=== PATIENT | male | born 2000 | race African-American/Black ===

== ENCOUNTER 2024-12-01 16:44 | Emergency (ER) | payer SELFPAY ==
[~2024-12-01] VITALS: Ht 193 cm; Wt 86.0 kg
[~2024-12-01 16:44] MED LIST: ALBU18; Q-VAR
--- NOTE | 2024-12-01 17:21 | ED.PDOC ---
History of Present Illness HPI Comments 24 year old male presents to the ED with a chief complaint of head pain onset 1 week. Patient states he has been experiencing head pain, neck pain for the past week. Patient was seen at [facility] yesterday, was given Toradol and [place], with no relief of symptoms. Denies any PMHx as well as fall, injury, trauma, LOC, dizziness, blurry vision, nausea, vomiting, diarrhea. No other symptoms or modifying factors present at this time. Chief Complaint: Neck Pain Time Seen by MD: 17:05 Reviewed Notes: Nurses Notes, Medications, Allergies Allergies: Coded Allergies: NO KNOWN ALLERGIES (Unverified , 05/13/10) Home Meds Reported Medications Albuterol Sulfate (Ventolin Hfa) Aer, PRN 05/13/10 [Q-Blane] No Conflict Check 05/13/10 Information Source: Patient Mode of Arrival: Ambulatory Severity: Moderate Timing: Weeks Duration: Since onset Prehospital treatment: None Past Medical History PAST MEDICAL HISTORY: Denies Surgical History: Denies all surgeries Family History Family History: Reviewed,noncontributory to illness, No family hx of Cancer, No family hx of DM, No family hx of Heart aliya, No family hx of HTN, No family hx ofKidney aliya, No family hx of Liver aliya, No family hx of Lung aliya, No family hx of Stroke Social History Smoker: Non-Smoker Alcohol: Denies ETOH Use Drugs: Denies Drug Use Lives In: Home Constitutional: denies: chills, diaphoresis, fatigue, fever, malaise, sweats, weakness, others EENTM: denies: blurred vision, double vision, ear bleeding, ear discharge, ear drainage, ear pain, ear ringing, eye pain, eye redness, hearing loss, mouth pain, mouth swelling, nasal discharge, nose bleeding, nose congestion, nose pain, photophobia, tearing, throat pain, throat swelling, voice changes, others Respiratory: denies: cough, hemoptysis, orthopnea, SOB at rest, shortness of breath, SOB with excertion, stridor, wheezing, others Cardiovascular: denies: chest pain, dizzy spells, diaphoresis, Dyspnea on exertion, edema, irregular heart beat, left arm pain, lightheadedness, palpitations, PND, syncope, others Gastrointestinal: denies: abdomen distended, abdominal pain, blood streaked bowels, constipated, diarrhea, dysphagia, difficulty swallowing, hematemesis, melena, nausea, poor appetite, poor fluid intake, rectal bleeding, rectal pain, vomiting, others Genitourinary: denies: burning, dysuria, flank pain, frequency, hematuria, incontinence, penile discharge, penile sore, pain, testicle pain, testicle swelling, urgency, others Neurological: reports: headache; denies: dizziness, fainting, left sided numbness, left sided weakness, numbness, paresthesia, pre-existing deficit, right sided numbness, right sided weakness, seizure, speech problems, tingling, tremors, weakness, others Musculoskeletal: reports: neck pain; denies: back pain, gout, joint pain, joint swelling, muscle pain, muscle stiffness, others Integumetry: denies: bruises, change in color, change in hair/nails, dryness, laceration, lesions, lumps, rash, wounds, others Allergic/Immunocompromised: denies: Difficulty Healing, Frequent Infections, Hives, Itching, others Hematologic/Lymphatic: denies: anemia, blood clots, easy bleeding, easy bruising, swollen glands, others Endocrine: denies: excessive hunger, excessive sweating, excessive thirst, excessive urination, flushing, intolerance to cold, intolerance to heat, unexplained weight gain, unexplained weight loss, others Psychiatric: denies: anxiety, bipolar disorder, depression, hopeless, panic disorder, schizophrenia, sleepless, suicidal, others All Other Systems: Reviewed and Negative Physical Exam General Appearance: Moderate Distress (Moderate distress at time of evaluation due to head and neck pain.), Normal HEENT: Normal ENT Inspection, Pharynx Normal, TMs Normal Neck: Other ( Diffuse tenderness to palpation bilaterally a posterior cervical spine. No step-offs noted. No signs of trauma. Mild reduced range of motion.) Respiratory: Chest Non-Tender, Lungs Clear, No Accessory Muscle Use, No Respiratory Distress, Normal Breath Sounds Cardiovascular: No Edema, No JVD, No Murmur, No Gallop, Normal Peripheral Pulses, Regular Rate/Rhythm Breast Exam: Deferred Gastrointestinal: No Organomegaly, Non Tender, No Pulsatile Mass, Normal Bowel Sounds, Soft Genitalia: Deferred Pelvic: Deferred Rectal: Deferred Extremities: No calf tenderness, Normal capillary refill, Normal inspection, Normal range of motion, Non-tender, No pedal edema Musculoskeletal : Apperance: Normal Neurologic: Alert, No Motor Deficits, Normal Affect, Normal Mood, No Sensory Deficits Cerebellar Function: Normal Reflexes: Normal Skin: Dry, Normal Color, Warm Lymphatic: No Adenopathy Was a procedure done? Was a procedure done?: No Differential Dx Considerations may include: Cervical radiculopathy, cervical vertebrae fracture, cervical muscle strain, se psis, electrolyte abnormality X-Ray, Labs, Meds, VS Vital Signs Date Time Temp Pulse Resp B/P (MAP) Pulse Ox O2 Delivery O2 Flow Rate FiO2 12/01/24 20:27 99 17 100 Room Air* 0 21 12/01/24 20:26 99 19 141/89 12/01/24 20:22 98.9 99 19 148/81 (103) 100 98.9 12/01/24 17:06 97.8 132 16 146/88 (107) 100 97.8 Lab Test 12/01/24 17:33 Range/Units White Blood Count 4.8 4.4-10.8 10^3/uL Red Blood Count 5.06 4.5-5.90 10^6/uL Hemoglobin 15.6 13.5-17.5 g/dL Hematocrit 46.1 41.0-53.0 % Mean Corpuscular Volume 91.1 80.0-100.0 fL Mean Corpuscular Hemoglobin 30.8 28.0-32.0 pg Mean Corpuscular Hemoglobin Concent 33.8 32.0-36.0 g/dL Red Cell Distribution Width 13.6 11.8-14.3 % Platelet Count 161 140-450 10^3/uL Mean Platelet Volume 9.2 6.9-10.8 fL Neutrophils (%) (Auto) 59.1 37.0-80.0 % Lymphocytes (%) (Auto) 32.4 10.0-50.0 % Monocytes (%) (Auto) 6.6 0.0-12.0 % Eosinophils (%) (Auto) 1.6 0.0-7.0 % Basophils (%) (Auto) 0.3 0.0-2.0 % Neutrophils # (Auto) 2.8 1.6-8.6 10 ^3/uL Lymphocytes # (Auto) 1.6 0.4-5.4 10 ^3/uL Monocytes # (Auto) 0.3 0-1.3 10 ^3/uL Eosinophils # (Auto) 0.1 0-0.8 10 ^3/uL Basophils # (Auto) 0 0-0.2 10 ^3/uL Nucleated Red Blood Cells 0.2 % Sodium Level 141 136-145 mmol/L Potassium Level 3.7 3.5-5.1 mmol/L Chloride Level 105 98-107 mmol/L Carbon Dioxide Level 26 20-31 mmol/L Anion Gap 10 5-15 Blood Urea Nitrogen 8 L 9-23 mg/dL Creatinine 1.00 0.700-1.30 mg/dL Glomerular Filtration Rate Calc 109 >90 mL/min BUN/Creatinine Ratio 8.0 L 10.0-20.0 Serum Glucose 99 74-106 mg/dL Calcium Level 10.9 H 8.7-10.4 mg/dL Current Medications Medications (Trade) Dose Ordered Sig/Nayana Route Start Time Stop Time Status Last Admin Hydromorphone HCl (Dilaudid Injection) 0.5 mg ONCE ONCE IM 12/01/24 17:15 12/01/24 17:16 DC 12/01/24 20:26 X-Ray, Labs, Meds, VS Comment All studies performed the ED were evaluated by me personally. Laboratories were unremarkable for any systemic process. Cervical series was unremarkable for any fractures or degenerative disc disease.I believe the patient is suffering from a cervical radiculopathy. Advise utilizing medication as needed and additionally, follow up with the primary care provider for continued evaluation. Time of 1ST Reevaluation: 21:51 Reevaluation 1ST: Improved Consultation: PCP Patient Education/Counseling: Diagnosis, Treatment, Prognosis Family Education/Counseling: Diagnosis, Treatment, No Family Present Departure 1 Departure Time of Disposition: 21:52 Impression: Primary Impression: Cervical radiculopathy Disposition: HOME / SELF CARE / HOMELESS Condition: Stable Additional Instructions: Advised patient utilize medication as needed for symptomatic relief. If symptoms continue, patient will need to follow up with the primary care provider for long-term management. e-Prescriptions Tramadol Hcl (Tramadol Hcl) 50 Mg Tab 50 MG PO Q8HP PRN, #15 TAB Prov: BARBARAHORTENSIA Crump PAC 12/01/24 Discharged With: Self, Friend Critical Care Note Critical Care Time?: No Stability Stability form required: No Heart Score Heart Score: Heart Score Response (Comments) Value History N/A 0 EKG N/A 0 Age N/A 0 Risk Factors N/A 0 Troponin N/A 0 Total 0 I personally scribed for HORTENSIA JIMENEZ PAC ([email or web address]) on 12/01/24 at 17:21. Electronically submitted by Carley Boone ([email or web address]). HORTENSIA JIMENEZ PAC Dec 01, 2024 17:21
--- NOTE | 2024-12-01 18:02 | DVH ---
INDICATION: Neck pain COMPARISON: None TECHNIQUE: 3 views of the cervical spine were obtained. FINDINGS: The cervical vertebral alignment is normal. The predental space is normal. The intervertebral disc spaces are well-maintained. No significant facet arthropathy is noted. No acute fracture, vertebral compression deformity or aggressive osseous lesions. The imaged lung apices are unremarkable. IMPRESSION: No acute fracture.
[2024-12-01 18:22] LABS: Basophils # (auto) 0 10 ^3/uL (0-0.2); Basophils % (auto) 0.3 % (0.0-2.0); Eosinophils # (auto) 0.1 10 ^3/uL (0-0.8); Eosinophils % (auto) 1.6 % (0.0-7.0); Hematocrit 46.1 % (41.0-53.0); Hemoglobin 15.6 g/dL (13.5-17.5); Lymphocytes # (auto) 1.6 10 ^3/uL (0.4-5.4); Lymphocytes % (auto) 32.4 % (10.0-50.0); Mean Corpuscular Hemoglobin 30.8 pg (28.0-32.0); Mean Corpuscular Hgb Conc. 33.8 g/dL (32.0-36.0); Mean Corpuscular Volume 91.1 fL (80.0-100.0); Monocytes # (auto) 0.3 10 ^3/uL (0-1.3); Monocytes % (auto) 6.6 % (0.0-12.0); Neutrophils # (auto) 2.8 10 ^3/uL (1.6-8.6); Neutrophils % (auto) 59.1 % (37.0-80.0); Nucleated Red Blood Cells % 0.2 %; Platelet Count (auto) 161 10^3/uL (140-450); Red Blood Cells 5.06 10^6/uL (4.5-5.90); Red Cell Distribution Width 13.6 % (11.8-14.3); White Blood Cell 4.8 10^3/uL (4.4-10.8)
[2024-12-01 18:34] LABS: Chloride 105 mmol/L (98-107); Potassium 3.7 mmol/L (3.5-5.1); Sodium 141 mmol/L (136-145)
[2024-12-01 18:35] LABS: Anion Gap 10 (5-15); Carbon Dioxide 26 mmol/L (20-31)
[2024-12-01 18:36] LABS: Calcium 10.9 mg/dL (8.7-10.4)
[2024-12-01 18:40] LABS: Glucose 99 mg/dL (74-106)
[2024-12-01 18:43] LABS: Blood Urea Nitrogen 8 mg/dL (9-23)
[2024-12-01 20:22] VITALS: TEMP 98.9
[2024-12-01] MEDS: HYDROmorphone HCL 2 MG/ML VL/or syr IM ONE (20:26)
[2024-12-01 20:27] VITALS: PULSE 99; RESP 17; O2SAT 100
[2024-12-01 20:56] VITALS: BP 135/87; PULSE 99; RESP 19
[2024-12-01] MEDS ORDERED: TRAM50TA2 PO (21:53)
== END 2024-12-01 22:06 | disposition home or self-care (01) ==
LOC: ER 16:44
DX: M54.12 Radiculopathy, cervical region (principal)
CPT/HCPCS: 36415; 72040; 80048; 85025; 99284; J1171